=== PATIENT | female | born 1990 | race Caucasian/White ===

== ENCOUNTER 2016-08-22 07:20 | Emergency (ER) | payer OTHER ==
[~2016-08-22] VITALS: Ht 160 cm; Wt 96.2 kg
[2016-08-22 09:53] VITALS: BP 106/68
== END 2016-08-22 09:54 | disposition home or self-care (01) ==
LOC: ED 07:20
DX: D17.1 Benign lipomatous neoplasm of skin and subcutaneous tissue of trunk (principal); M71.352 Other bursal cyst, left hip; R03.0 Elevated blood-pressure reading, without diagnosis of hypertension